=== PATIENT | female | born 1985 | race African-American/Black ===

== ENCOUNTER 2018-01-06 19:39 | Emergency (ER) | payer MEDICAID ==
[~2018-01-06] VITALS: Ht 180.3 cm; Wt 142.9 kg
[2018-01-06 20:00] VITALS: BP 160/90
[2018-01-06] MEDS ORDERED: DEXAMETHASONE SOD PHOS 10MG/1ML VIAL INJ IM ONE (21:45)
== END 2018-01-06 22:07 | disposition home or self-care (01) ==
LOC: ER 19:39
DX: J06.9 Acute upper respiratory infection, unspecified (principal); R53.83 Other fatigue
CPT/HCPCS: 71045; 96372; 99283; J1100